=== PATIENT | female | born 1980 | race Caucasian/White ===

== ENCOUNTER 2017-02-18 08:57 | Emergency (ER) | payer BC | END 2017-02-18 10:09 | disposition home or self-care (01) | LOC: D.ER 08:57 | DX: B34.9 Viral infection, unspecified (principal) ==

== ENCOUNTER 2018-05-24 05:50 | Day surgery (SDC) | payer BC ==
[2018-05-23 10:55] LABS: BASOPHILS 1.4 % (0-2); EOSINOPHILS 5.1 % (0-7); HEMOGLOBIN 12.2 g/dL (12-16); LYMPHOCYTES 46.4 % (15-50); MCH 27.4 pg (26.0-34.0); MCHC 33.9 g/dL (31.0-37.0); MCV 80.7 fL (80.0-100.0); MEAN PLATELET VOLUME 9.5 fL (7.4-10.4); MONOCYTES 8.1 % (2-11); PLATELET COUNT 208 10x3/uL (130-400); RBC 4.46 10x6/uL (4.00-5.40); RDW 14.1 % (11.5-14.5); WBC 4.3 10x3/uL (4.8-10.8)
[2018-05-23 12:30] LABS: CALC OSMOLALITY 277 mosm/kg (275-300); CALCIUM 8.9 mg/dL (8.5-10.1); CARBON DIOXIDE 29.5 mmol/L (21.0-32.0); CHLORIDE - SERUM 103 mmol/L (98-107); CREATININE - SERUM 0.9 mg/dL (0.6-1.3); GLUCOSE 77 mg/dL (74-106); POTASSIUM - SERUM 3.8 mmol/L (3.5-5.1); SODIUM 141 mmol/L (136-145); UREA NITROGEN 7 mg/dL (7-18); eGFR NON AFRICAN AMERICAN 75 mL/min (90-120)
[~2018-05-24] VITALS: Ht 167.6 cm; Wt 99.8 kg
--- NOTE | ~2018-05-24 | OP ---
PATIENT NAME: ALLYSON BEY MEDICAL RECORD: [id number] :84 LOCATION:D.OPS ADMISSION DATE: SURGEON: DURGA KIRK MD DATE OF OPERATION: 05/24/2018 PREOPERATIVE DIAGNOSES: 1. Hidradenitis suppurativa. 2. Right axillary cyst. 3. Asthma. POSTOPERATIVE DIAGNOSES: 1. Hidradenitis suppurativa. 2. Right axillary cyst. 3. Asthma. PROCEDURE: Excision of right axillary cyst times 2 (2 cm and 3 cm). SURGEON: Durga Kirk MD FRAME EXPANDER: Wanda Stafford APRN REPORT OF PROCEDURE: The patient's right axilla was prepped and draped in sterile fashion. The patient had 2 cysts present. The one that was anterior and inferior was the larger, more chronic cyst. An ovoid incision approximately 3 cm in length was made overlying the cyst and electrocautery was used to dissect through the subcutaneous tissues to the surrounding fatty tissues, encompassing the cystic scar tissue. This was completely excised and sent off for permanent specimen. The patient had another smaller cyst that was superior and posterior to this in the axilla. An ovoid incision approximately 2 cm in length was made overlying around the cyst cavity. An electrocautery was used to dissect through the subcutaneous tissues into the surrounding fatty tissues. We then irrigated out the wounds with normal saline. Any bleeding that was found was treated with electrocautery. The subcutaneous tissues were then infused with a total of 10 mL of 0.25% Marcaine with epinephrine and then closed with subcutaneous 3-0 Vicryls. The skin was closed with running subcutaneous 5-0 Monocryl and dressed appropriately. COMPLICATIONS: None. CONDITION: Stable. ANESTHESIA: General endotracheal and local. BLOOD LOSS: Minimal. TRANSINT:[id number] Voice Confirmation ID: [id number] DOCUMENT ID: [id number] OPERATIVE REPORT [id number] ALLYSON BEY CHRISTIAN MD at 0801 CC: JAEK GARCIA DO [id number] DICTATION DATE: 05/24/18 0850 COMMERCIAL REAL ESTATE ASSISTANT: 05/24/18 1032 [facility] 05/24/18 [place] [address]
[~2018-05-24 05:50] MED LIST: PROAIR HFA8.5 GM INH; SINGULAIR10 MG PO
[2018-05-24 06:31] VITALS: BP 142/90; Ht 167.6 cm; Wt 99.8 kg
[2018-05-24 08:32] LABS: HCG SERUM NEGATIVE (NEGATIVE)
[2018-05-24] MEDS ORDERED: HYDROCODONE-APA1 TAB PO (08:46)
== END 2018-05-24 10:50 | disposition home or self-care (01) ==
LOC: D.OPS 05:50 → D.PAN 08:00 → D.OPS 10:50
PROVIDERS: Surgery
DX: L73.2 Hidradenitis suppurativa (principal); L72.0 Epidermal cyst; J45.909 Unspecified asthma, uncomplicated; Z01.812 Encounter for preprocedural laboratory examination

== ENCOUNTER → 2020-01-01 13:39 | Outpatient (CLI) | payer OTHER ==
[2018-05-24 06:31] VITALS: BMI 35.6
[~2020-01-01 13:39] MED LIST changes: +HYDROCODONE-APA1 TAB PO
[2020-01-01 15:04] LABS: BASOPHILS 0.4 % (0-2); EOSINOPHILS 2.7 % (0-7); HEMATOCRIT 34.5 % (36.0-48.0); HEMOGLOBIN 11.6 g/dL (12-16); IMMATURE GRANULOCYTES 0.1 % (0-5); LYMPHOCYTES 35.5 % (15-50); MCH 26.4 pg (26.0-34.0); MCHC 33.6 g/dL (31.0-37.0); MCV 78.4 fL (80.0-100.0); MEAN PLATELET VOLUME 9.2 fL (7.4-10.4); MONOCYTES 6.9 % (2-11); NEUTROPHILS 54.4 % (40-80)
[2020-01-01 15:17] LABS: PLATELET COUNT 253 10x3/uL (130-400)
[2020-01-02 11:10] LABS: IMMUNOGLOBULIN A 268 mg/dL (87-352); IMMUNOGLOBULIN G 1463 mg/dL (700-1600); IMMUNOGLOBULIN M 160 mg/dL (26-217)
== END | disposition home or self-care (01) ==
LOC: D.LAB 13:30 → D.RAD 13:45 → D.RT 14:00
PROVIDERS: ATTEND Internal Medicine Pulmonary Disease
DX: J45.909 Unspecified asthma, uncomplicated (principal)

== ENCOUNTER 2020-04-25 16:32 | Emergency (ER) | payer OTHER ==
[~2020-04-25] VITALS: Ht 167.6 cm; Wt 109.1 kg
[2020-04-25 16:37] VITALS: Ht 167.6 cm; Wt 109.1 kg
[2020-04-25] MEDS ORDERED: TYLENOL W/CODEI1 TAB PO (17:06)
[2020-04-25] MEDS ORDERED: IBUPROFEN800 MG PO (17:06)
[2020-04-25] MEDS ORDERED: CLEOCIN HCL300 MG PO (17:06)
[2020-04-25 17:37] VITALS: BP 142/78
== END 2020-04-25 17:38 | disposition home or self-care (01) ==
LOC: D.ER 16:32
DX: K04.7 Periapical abscess without sinus (principal); K08.89 Other specified disorders of teeth and supporting structures

== ENCOUNTER 2020-07-29 02:25 | Emergency (ER) | payer BC ==
[~2020-07-29] VITALS: Ht 167.6 cm; Wt 113.6 kg
[~2020-07-29 02:25] MED LIST changes: +CLEOCIN HCL300 MG PO; +IBUPROFEN800 MG PO; +TYLENOL W/CODEI1 TAB PO
[2020-07-29 02:33] VITALS: Ht 167.6 cm; Wt 113.6 kg
[2020-07-29 03:03] LABS: BASOPHILS 0.3 % (0-2); EOSINOPHILS 0.7 % (0-7); HEMATOCRIT 33.3 % (36.0-48.0); HEMOGLOBIN 11.2 g/dL (12-16); IMMATURE GRANULOCYTES 0.3 % (0-5); LYMPHOCYTES 13.5 % (15-50); MCH 26.5 pg (26.0-34.0); MCHC 33.6 g/dL (31.0-37.0); MCV 78.9 fL (80.0-100.0); MEAN PLATELET VOLUME 9.2 fL (7.4-10.4); MONOCYTES 9.4 % (2-11); NEUTROPHILS 75.8 % (40-80); PLATELET COUNT 231 10x3/uL (130-400); RBC 4.22 10x6/uL (4.00-5.40); RDW 14.9 % (11.5-14.5); WBC 7.2 10x3/uL (4.8-10.8)
[2020-07-29 03:16] LABS: CALC OSMOLALITY 264 mosm/kg (275-300); CALCIUM 8.9 mg/dL (8.5-10.1); CARBON DIOXIDE 26.6 mmol/L (21.0-32.0); CHLORIDE - SERUM 101 mmol/L (98-107); CREATININE - SERUM 1.1 mg/dL (0.6-1.3); POTASSIUM - SERUM 3.3 mmol/L (3.5-5.1); SODIUM 133 mmol/L (136-145); UREA NITROGEN 7 mg/dL (7-18); eGFR NON AFRICAN AMERICAN 59 mL/min (90-120)
[2020-07-29 03:17] LABS: APTT 31.7 SECONDS (22.8-39.4); INR 1.08 (0.85-1.17); PROTIME 13.9 SECONDS (11.6-15.0)
[2020-07-29 03:18] LABS: D-DIMER-QUANTITATIVE 0.55 ug/mLFEU (0.20-0.54); GLUCOSE 116 mg/dL (74-106)
[2020-07-29 03:32] LABS: ALBUMIN 3.5 g/dL (3.4-5.0); ALKALINE PHOSPHATASE 86 U/L (30-120); ALT (SGPT) 21 U/L (10-68); BILIRUBIN - TOTAL 0.37 mg/dL (0.2-1.3); CKMB 0.4 U/L (0.0-3.6); CREATINE KINASE 114 UL (21-215); PRO BNP 78 pg/mL (0-125); PROTEIN - SERUM 7.9 g/dL (6.4-8.2); TROPONIN-I < 0.017 ng/mL (0.000-0.060)
[2020-07-29] MEDS ORDERED: STERAPRED DS 1010 MG PO (04:52)
[2020-07-29 04:54] VITALS: BP 116/62
== END 2020-07-29 05:05 | disposition home or self-care (01) ==
LOC: D.ER 02:25
PROVIDERS: Family Medicine
DX: J45.901 Unspecified asthma with (acute) exacerbation (principal)

== ENCOUNTER 2021-02-14 20:04 | Emergency (ER) | payer BC ==
[~2021-02-14] VITALS: Ht 167.6 cm; Wt 108.0 kg
[~2021-02-14 20:04] MED LIST changes: +STERAPRED DS 1010 MG PO
[2021-02-14 20:24] VITALS: Ht 167.6 cm; Wt 108.0 kg
[2021-02-14] MEDS ORDERED: VOLTAREN75 MG PO (20:32)
[2021-02-14] MEDS ORDERED: BACLOFEN20 M1 PO (20:32)
== END 2021-02-14 21:36 | disposition home or self-care (01) ==
LOC: D.ER 20:04
DX: M79.661 Pain in right lower leg (principal); M79.10 Myalgia, unspecified site